=== PATIENT | female | born 1955 | race Caucasian/White ===

== ENCOUNTER → 2018-06-03 09:41 | Outpatient (CLI) | payer MEDICARE, SELFPAY ==
--- NOTE | 2018-06-03 09:45 | MM_ITS ---
MM Dig screening mamm BI w/CAD CAD Screening COMPARISON: None, this is baseline INDICATION: There is no personal or family history of breast cancer TECHNIQUE: Standard CC and MLO images were obtained. R2 CAD reviewed. FINDINGS: Moderate fibroglandular densities are seen in the central portions of both breasts. There is no suspicious lesion in either breast and there are no suspicious microcalcifications. There is minimal arterial calcification left breast. IMPRESSION: Fibrofatty parenchyma no suspicious lesion seen BI-RADS Category: 2 Benign Finding(s) RECOMMENDED FOLLOW-UP: 1YR - 1 YEAR FOLLOW-UP (A letter has been sent to the patient regarding results of the study.)
== END ==
DX: Z12.31 Encounter for screening mammogram for malignant neoplasm of breast (principal)
CPT/HCPCS: 77067

== ENCOUNTER → 2023-03-14 13:03 | Outpatient (CLI) | payer MEDICARE, SELFPAY ==
[2023-03-14 16:28] LABS: Blood Urea Nitrogen 13 mg/dl (7-17); Calcium 8.9 mg/dl (8.4-10.2); Carbon Dioxide 27 mmol/L (22.0-30.0); Chloride 104 mmol/L (98-107); Estimated Glomerular Filt Rate 83 ml/min (>60); GFR (African American) 100 ML/MIN (>60); Glucose 88 mg/dl (74-100); Sodium 142 mmol/L (136-145)
== END ==
PROVIDERS: PCP Internal Medicine; Visit Provider Internal Medicine
DX: I10 Essential (primary) hypertension (principal); E87.6 Hypokalemia; R91.1 Solitary pulmonary nodule
CPT/HCPCS: 80048

== ENCOUNTER → 2023-04-24 07:41 | Outpatient (CLI) | payer MEDICARE, SELFPAY ==
--- NOTE | 2023-04-24 07:48 | CT_ITS ---
FINAL REPORT TECHNIQUE: Axial images were obtained from the lung apex to the mid abdomen by computed tomography. Coronal reformatted images were obtained. This study was performed with techniques to keep radiation doses as low as reasonably achievable, (ALARA). Individualized dose reduction techniques using automated exposure control or adjustment of mA and/or kV according to the patient''s size were employed. CLINICAL HISTORY: LUNG NODULE,?INTERTIUAL LUNG DISEASE COMPARISON: Chest x-ray 02/23/2023 FINDINGS: There is no axillary mass or adenopathy. There are small mediastinal nodes. Heart size is normal. There is no pericardial or pleural effusion. There is a calcified nodule to anterior left lower lobe measuring 9 mm. There are several noncalcified right lower lobe nodules measuring up to 4 mm as seen on image 35. There is a nodule in the medial left lower lobe measuring 6 mm seen on image 39. There is mild scarring. There is no evidence of interstitial lung disease. Limited images of the upper abdomen demonstrate no acute findings. IMPRESSION: Bilateral lung nodules. Recommend follow-up in 6 months. Reviewed, Interpreted and Dictated by Jacob Shell III, MD Transcribed by Arely John Authenticated and [facility]
== END ==
LOC: RAD 07:41
PROVIDERS: PCP Internal Medicine; Visit Provider Internal Medicine
DX: R91.1 Solitary pulmonary nodule (principal)
CPT/HCPCS: 71250

== ENCOUNTER → 2023-04-25 13:20 | Outpatient (CLI) | payer MEDICARE, SELFPAY ==
[2023-04-25 16:06] LABS: Anion Gap 14.6 mEq/L (5-15); Blood Urea Nitrogen 19 mg/dl (7-17); Calcium 9.5 mg/dl (8.4-10.2); Carbon Dioxide 28 mmol/L (22.0-30.0); Chloride 105 mmol/L (98-107); Estimated Glomerular Filt Rate 62 ml/min (>60); GFR (African American) 75 ML/MIN (>60); Glucose 84 mg/dl (74-100); Potassium 4.6 mmoL/L (3.5-5.1); Sodium 143 mmol/L (136-145)
== END ==
PROVIDERS: PCP Internal Medicine; Visit Provider Internal Medicine
DX: I10 Essential (primary) hypertension (principal); E87.6 Hypokalemia; R91.1 Solitary pulmonary nodule
CPT/HCPCS: 80048